=== PATIENT | female | born 1965 | race Caucasian/White ===

== ENCOUNTER 2018-05-21 07:30 | Inpatient (IN) | payer BC ==
[~2018-05-21] VITALS: Ht 170.2 cm; Wt 84.2 kg
[~2018-05-21 07:30] MED LIST: B12 INJECTION IM; BACITRACIN 50,000 UNIT ONE; BACITRACIN OINT 500U/GM, 15 GM ONE; BUPIVACAINE/PF-EPI 0.5% 1:200K ONE; CAL/MAG/ZINC PO; CHOL500015 PO; CYCL-259 PO; ESTR1TAB15 PO; GLUC15006 PO; IBUP-1223 PO; METO25TA91 PO; MULT-516 PO; OMEG1CAP23 PO; PROG100C16 PO; SELE200T10 PO; THYR30TA PO; THYR90TA PO; [UNRECOGNIZED DRUG - OTHER] PO
[2018-05-21] MEDS ORDERED: MIDAZOLAM 1 MG/ML, 2ML ONE (08:01)
[2018-05-21] MEDS ORDERED: PROPOFOL 50 ML ONE ×2 (08:01→11:15)
[2018-05-21] MEDS ORDERED: DEXAMETHASONE 4 MG/ML, 1ML ONE ×2 (08:01)
[2018-05-21] MEDS ORDERED: PROPOFOL 10 MG/ML, 20ML ONE (08:01)
[2018-05-21] MEDS ORDERED: SUCCINYLCHOLINE 20 MG/ML, 10ML ONE (08:01)
[2018-05-21] MEDS ORDERED: CEFAZOLIN 1,000 MG ONE ×2 (08:01)
[2018-05-21] MEDS ORDERED: FENTANYL PF 100 MCG/2ML ONE ×3 (08:01→12:46)
[2018-05-21] MEDS ORDERED: LACTATED RINGERS 1,000 ML IV SCH (08:23)
[2018-05-21] MEDS ORDERED: ACETAMINOPHEN 500 MG TABLET PO ONE (08:30)
[2018-05-21] MEDS ORDERED: ONDANSETRON ODT 8 MG PO ONE (08:30)
[2018-05-21] MEDS ORDERED: GABAPENTIN 300 MG CAPSULE PO ONE (08:30)
[2018-05-21] MEDS ORDERED: MORPHINE SULFATE 4 MG/ML, 1ML IVPush PRN (09:00)
[2018-05-21] MEDS ORDERED: LABETALOL 5MG/ML, 20ML IV PRN (09:00)
[2018-05-21] MEDS ORDERED: HYDROmorphone 1 MG/ML, 1ML IV PRN (09:00)
[2018-05-21] MEDS ORDERED: MEPERIDINE/PF 25MG/0.5ML IVPush PRN (09:00)
[2018-05-21] MEDS ORDERED: DIPHENHYDRAMINE 50 MG/ML, 1ML IVPush PRN ×2 (09:00→15:00)
[2018-05-21] MEDS ORDERED: FENTANYL PF 100 MCG/2ML IV PRN (09:00)
[2018-05-21] MEDS ORDERED: OXYcodone 5 MG/5 ML ORAL.SOL UDC PO PRN (09:00)
[2018-05-21] MEDS ORDERED: DIAZEPAM 5 MG/ML, 2ML IVPush PRN (09:00)
[2018-05-21] MEDS ORDERED: LORazepam 2 MG/ML, 1ML IVPush PRN (09:00)
[2018-05-21] MEDS ORDERED: ALBUTEROL SULFATE 2.5 MG/3 ML NPPB PRN (09:00)
[2018-05-21] MEDS ORDERED: hydrALAzine 20 MG/ML, 1ML IV PRN (09:00)
[2018-05-21] MEDS ORDERED: SCOPOLAMINE PATCH, 1.5MG PATCH.TD72 TD PRN (09:00)
[2018-05-21] MEDS ORDERED: ROCURONIUM 10 MG/ML,10ML ONE (10:19)
[2018-05-21] MEDS ORDERED: ESMOLOL 100 MG/10 ML ONE (10:19)
[2018-05-21] MEDS ORDERED: METOCLOPRAMIDE 5 MG/ML, 2ML ONE (10:32)
[2018-05-21] MEDS ORDERED: OXYcodone 5 MG/5 ML ORAL.SOL UDC ONE (12:46)
[2018-05-21] MEDS ORDERED: HYDROmorphone 2 MG/ML, 1ML ONE (12:46)
[2018-05-21] MEDS ORDERED: ACETAMINOPHEN 650 MG SUPP PR PRN (15:00)
[2018-05-21] MEDS ORDERED: ACETAMINOPHEN 325 MG TABLET PO PRN (15:00)
[2018-05-21] MEDS ORDERED: DIPHENHYDRAMINE 50 MG/ML, 1ML IM PRN (15:00)
[2018-05-21] MEDS ORDERED: morphine SULFATE 10 MG/ML, 1ML IV PRN (15:00)
[2018-05-21] MEDS ORDERED: METHOCARBAMOL 1,000 MG in DEXTROSE 5% 100 ML IV ONE (15:00)
[2018-05-21] MEDS ORDERED: ONDANSETRON 2MG/ML, 2ML IV PRN (15:00)
[2018-05-21] MEDS ORDERED: PROMETHAZINE 25 MG/ML, 1ML IM PRN (15:00)
[2018-05-21] MEDS ORDERED: BISACODYL 10 MG SUPP PR PRN (15:00)
[2018-05-21] MEDS ORDERED: MAGNESIUM HYDROXIDE 8%, 30ML UDC PO PRN (15:00)
[2018-05-21] MEDS ORDERED: DIPHENHYDRAMINE 50 MG CAPSULE PO PRN (15:00)
[2018-05-21] MEDS: NS + 20MEQ KCL 1,000 ML IV SCH (15:39)
[2018-05-21] MEDS: DEXAMETHASONE 4 MG/ML, 1ML IV SCH ×2 (15:39→21:11)
[2018-05-21] MEDS: HYDROcodone/APAP 10/325 MG TABLET PO PRN ×2 (17:56→21:47)
[2018-05-21] MEDS ORDERED: CEFAZOLIN PMX 2GM/50ML 50 ML IVPB SCH (18:30)
[2018-05-21 19:04] VITALS: BP 123/68
[2018-05-21] MEDS: CEFAZOLIN 2,000 MG in SODIUM CHLORIDE 0.9% 50 ML IVPB SCH (20:10)
[2018-05-21] MEDS ORDERED: THYROID 30 MG TABLET PO SCH (21:00)
[2018-05-21] MEDS ORDERED: ZOLPIDEM 5MG TABLET PO PRN (21:00)
[2018-05-21] MEDS: CYCLOBENZAPRINE 10 MG TABLET PO PRN (21:11)
[2018-05-22] VITALS: BP 108/71
[2018-05-22] MEDS: METHOCARBAMOL 750 MG in DEXTROSE 5% 100 ML IV SCH ×2 (00:40→07:57)
[2018-05-22] MEDS: CEFAZOLIN 2,000 MG in SODIUM CHLORIDE 0.9% 50 ML IVPB SCH ×2 (03:47→12:00)
[2018-05-22] MEDS: DEXAMETHASONE 4 MG/ML, 1ML IV SCH ×2 (03:47→07:57)
[2018-05-22] MEDS: HYDROcodone/APAP 10/325 MG TABLET PO PRN ×3 (03:47→13:21)
[2018-05-22 04:02] VITALS: BP 122/89
[2018-05-22] MEDS: NS + 20MEQ KCL 1,000 ML IV SCH ×2 (05:26→12:45)
[2018-05-22] MEDS: CYCLOBENZAPRINE 10 MG TABLET PO PRN ×2 (05:28→13:21)
[2018-05-22] MEDS ORDERED: METOPROLOL SUCCINATE 25 MG TAB.ER.24H PO SCH (06:00)
[2018-05-22] MEDS ORDERED: THYROID 30 MG TABLET PO SCH (06:00)
[2018-05-22 07:33] VITALS: BP 110/78
[2018-05-22] MEDS ORDERED: SENNA/DOCUSATE TABLET PO SCH (09:00)
[2018-05-22 13:04] VITALS: BP 100/65
[2018-05-22] MEDS ORDERED: OXYC-307 PO (14:01)
[2018-05-22] MEDS ORDERED: CYCL5TAB PO (14:05)
[2018-05-22] MEDS ORDERED: DOCU-131 PO (14:05)
[2018-05-23] MEDS ORDERED: METHOCARBAMOL 750 MG TABLET PO SCH (23:00)
== END 2018-05-22 15:03 | disposition home or self-care (01) | DRG 518 ==
LOC: ORIP 08:07 → 4NOR 14:20 → DCLOUNGE 05-22 14:48
PROVIDERS: ADMIT Neurological Surgery; ATTEND Neurological Surgery
PROC: 0RB30ZZ Excision of Cervical Vertebral Disc, Open Approach (ICD-10-PCS; 2018-05-21)
PROC: 00NW0ZZ Release Cervical Spinal Cord, Open Approach (ICD-10-PCS; 2018-05-21)
PROC: 01N10ZZ Release Cervical Nerve, Open Approach (ICD-10-PCS; 2018-05-21)
PROC: 4A11X4Z Monitoring of Peripheral Nervous Electrical Activity, External Approach (ICD-10-PCS; 2018-05-21)
PROC: 0RR30JZ Replacement of Cervical Vertebral Disc with Synthetic Substitute, Open Approach (ICD-10-PCS; principal; 2018-05-21 10:00)
DX: M50.023 Cervical disc disorder at C6-C7 level with myelopathy (principal); M50.123 Cervical disc disorder at C6-C7 level with radiculopathy; M48.02 Spinal stenosis, cervical region; E89.0 Postprocedural hypothyroidism; G43.909 Migraine, unspecified, not intractable, without status migrainosus
CPT/HCPCS: 72040; C1776; G0378; J0690; J1100; J1170; J2250; J2704; J3010; J3360; J3480; Q0162; J0330; J2765; J2800; J7120